=== PATIENT | male | born 1945 | race Caucasian/White ===

== ENCOUNTER 2016-12-09 08:56 | Day surgery (SDC) | payer MEDICARE ==
--- NOTE | 2016-12-08 16:13 | PCM.HPANE ---
Patient Data Surgeon Admitting Provider: Attending Provider:Yifan Love MD Primary Care Physician:Sunita Other Provider:Sheela Garcia Anesthesia Reason for Visit Left Flank Mass Ht/WT & BMI Height (Feet): 5 Height (Inches): 11 Weight (Kilograms): 112.94 Body Mass Index 34.00 Allergies Coded Allergies: Penicillins (Verified Allergy, Unknown, skin sloughing off fingertips, 12/01) Past Anesthesia History Anesthesia History: Denies:: Abnormal Airway, Anesthesia Reactions, Difficult Intubation, Fam Anesthesia Reaction Diabetes History Hx Diabetes?: No MRSA MRSA: No Medications Blood Thinner: Aspirin Hypertension Medication: No Home Meds Incl Beta Garrett: No Reported Medications Triamcinolone Acet (Triamcinolone Acetonide Cream)1 Applic/0.25 Gm Cr1 Applic EXT BID #60 GM Ref 0 12/01/16 Tamsulosin ER 0.4 Mg Cap.er.24h0.4 Mg PO DAILY Ref 0 12/01/16 Ketoconazole 120 Ml [id number] Ml TP DAILY 12/01/16 Desonide (Desonide Cream)15 Gm Cream..g.1 Applic TOP BID #1 TUBE Ref 0 12/01/16 Clobetasol/Skin Cleanser #28 ([place] 0.05% Kit)1 Each Kt.shm.cln1 Each TP DAILY 12/01/16 Aspirin 81 Mg [id number] Mg PO 3xweekly Ref 0 12/01/16 History History of ENT Problems?: No HEENT History: Denies:: Abnormal Airway Cataracts (cataracts forming- no surgery yet ) Difficult Intubation Dysphagia Glaucoma Hearing Problem Sinus Problem TMJ Denture Type: None Teeth Condition: Within Normal Limits Hx of Heart Problems?: No Cardiovascular History: Denies:: AICD Abdominal Aortic Aneurism Cardiac Surgery Chest Pain Congestive Heart Failure Heart Murmur Hypertension Irregular Heartbeat Pacemaker Peripheral Vascular Hx of Respiratory Problem?: No Respiratory History: Denies:: Asthma COPD Emphysema Oxygen Administration Pneumonia Tuberculosis Use of C-PAP Machine (sleep study- marginal results no cpap recommended) Use of Inhalers / NEBS Hx Neurologic Problems?: No Neurological History: Denies:: CVA Headaches Multiple Sclerosis Parkinson's Disease Seizures TIA Hx of GI Problems?: Yes Hx of Problems?: No Genitourinary History: Denies:: Kidney Stones Urinary Tract Infection Male Hx: Positive for:: Prostate Problems (BPH) Denies:: Scrotal Mass Skin History: Positive for:: History Skin Disorders? (left lower flank mass current admission problem ) Hx Musculoskeletal Problems?: Yes Musculoskeletal History: Positive for:: Osteoarthritis Systemic Lupus Denies:: Fibromyalgia Joint Replacement Musculoskeletal Trauma Myasthenia Gravis Hx of Psycho/Social Problems?: No Psycho Social History: Denies:: Anxiety Hx Depression Hx Surgeries?: Yes (trigger finger ) Hx Any Other Health Problems?: Yes Other History: Denies:: Cancer Thyroid Disease History Blood Transfusions: Positive for:: Accept Blood Products? Denies:: Blood Transfusions Hx Diabetes: No Hx Alcohol Use: YesAlcoholic Drinks Per Day: one drink dailyHx Substance Use: NoHave You Smoked inLast 12 mo: No Stop/Bang P-Blood Pressure: treated: No B- Body Mass Index > 35 kg/m2: No A- Age over 50: Yes N- Neck Large Circumference: No G- Gender Male: Yes Risk Assessment Category Category 1A: Patient has history of documented sleep apnea, and HAS NOT received any narcotic, sedative or anesthesia administration during this stay. Category 1B: Patient has history of documented sleep apnea, and HAS received any narcotic , sedative or anesthesia administration during this stay Category 2: Patient has SUSPECTED Obstructive Sleep Apnea, and HAS received any narcotic , sedative or anesthesia administration during this stay. Category 3: Patient has SUSPECTED Obstructive Sleep Apnea and HAS NOT received narcotic, sedative or anesthesia administration during this stay. Category 4: Outpatient in Procedural Areas with known sleep apnea or who screen positive for High Risk via the STOP/BANG questionnaire. Exam Exam General Appearance: Alert, Oriented X3, Cooperative, No Acute Distress HEENT/AIRWAY: MP 2, Neck Movement (from), Mouth Opening (moderate) Lungs: Clear to Auscultation Heart: Exam Unremarkable Plan Impression Patient chart reviewed, patient interviewed and anesthestic plan with risks, benefits, and alternatives discussed, and informed consent obtained. ASA Physical Status: ASA2 Mod Systemic Disease Anesthetic Plan: GA Bene/Risks/Altern/Consents: Yes HP Complete Prior to Induction: Yes Dylan Tai MD Dec 08, 2016 16:13
[~2016-12-09] VITALS: Ht 180.3 cm; Wt 111.0 kg
[2016-12-09] VITALS (9 sets, daily range): BP systolic 125–157; BP diastolic 49–90; PULSE 76–98; RESP 12–18; O2SAT 92–97
[~2016-12-09 08:56] MED LIST: ASPI-973 PO; CLOB1KT.5 TP; Clindamycin Inj 900 MG in IV Premix 1 EACH IV ONE; DESO15CR25 TOP; KEN25CR EXT; KETO120S3 TP; Lactated Ringer's 1,000 ML IV SCH; TAMS0.4C29 PO
[2016-12-09] MEDS ORDERED: fentaNYL-PF 50 mCg/mL 2 mL Inj ONE (08:57)
[2016-12-09] MEDS ORDERED: Ondansetron 2 mg/mL 2 mL Inj ONE (08:57)
[2016-12-09] MEDS ORDERED: EPHEDrine/NS 5 mg/mL 5 mL Syringe ONE (08:57)
[2016-12-09] MEDS ORDERED: Propofol 10,000 mCg/mL 20 mL Inj ONE (08:57)
[2016-12-09] MEDS ORDERED: Phenylephrine/NS 100 mCg/mL 10 mL Syringe IVPUSH ONE (08:57)
[2016-12-09] MEDS ORDERED: Lactated Ringer's 1,000 ML IV ONE (09:16)
[2016-12-09] MEDS ORDERED: Lactated Ringer's 500 ML IV PRN (10:16)
[2016-12-09] MEDS ORDERED: Lactated Ringer's 1,000 ML IV SCH (10:16)
[2016-12-09] MEDS ORDERED: Atropine 0.4 mg/mL Inj IVPUSH PRN (10:20)
[2016-12-09] MEDS ORDERED: Ondansetron 2 mg/mL 2 mL Inj IVPUSH PRN (10:20)
[2016-12-09] MEDS ORDERED: Dexamethasone 4 mg/mL Inj IVPUSH PRN (10:20)
[2016-12-09] MEDS ORDERED: EPHEDrine Sulfate 50 mg/mL Inj IVPUSH PRN (10:20)
[2016-12-09] MEDS ORDERED: hydrALAZINE 20 mg/mL Inj IVPUSH PRN (10:20)
[2016-12-09] MEDS ORDERED: Labetalol 5 mg/mL 4 mL Inj IV PRN (10:20)
[2016-12-09] MEDS ORDERED: HYDROmorphone 1 mg/mL Inj IVPUSH PRN (10:20)
[2016-12-09] MEDS ORDERED: Phenylephrine 10,000 mCg/mL Inj IVPUSH PRN (10:20)
[2016-12-09] MEDS ORDERED: fentaNYL-PF 50 mCg/mL 2 mL Inj IVPUSH PRN (10:20)
[2016-12-09] MEDS ORDERED: Bupivacaine-MPF 0.5% W/EPI 30 mL Inj INFILTRATE ONE (10:53)
[2016-12-09] MEDS ORDERED: HYDROcodone-APAP 5-325 mg Tablet PO PRN (11:55)
--- NOTE | 2016-12-09 12:35 | PCM.ANEP1 ---
Post Anesthesia PACU Phase 1 Assessment Vital Signs Vital Signs Date Time Temp Pulse Resp B/P Pulse Ox O2 Delivery O2 Flow Rate FiO2 12/09/16 12:10 36.7 85 16 125/68 95 Room Air 12/09/16 11:55 88 15 128/66 94 Room Air 12/09/16 11:50 36.6 90 14 137/67 94 Room Air 12/09/16 11:45 89 12 126/49 95 Room Air 12/09/16 11:40 91 12 129/57 94 Room Air 12/09/16 11:35 95 13 125/60 93 Room Air 12/09/16 11:30 98 17 131/55 92 Room Air 12/09/16 11:27 36.6 98 17 135/52 92 Room Air 12/09/16 09:19 36.5 76 18 157/90 97 Room Air Anesthetic Administered: GA Level of Alertness: Awake, talking PACHECO's with Equal Strength: Yes Pain: No Nausea or Vomiting: No CV Function & Hydration Stable: Yes Airway Device: Oxygen Delivery: Room Air Lungs: Normal Air Movement PACU Phase 2 Assessment Complications: No Follow up Care: No Patient Instructions Provided: N/A Dylan Tai MD Dec 09, 2016 12:35
--- NOTE | 2016-12-10 09:51 | OP ---
[address] [address] OPERATIVE REPORT PATIENT: ÁLVARO MARTELL : 1945 MR#: [id number] ADMIT: 12/09/2016 JOB ID: [id number] DATE OF SURGERY: 12/09/2016 PREOPERATIVE DIAGNOSIS(ES): Left flank mass. POSTOPERATIVE DIAGNOSIS(ES): Large left flank epidermal inclusion cyst. PROCEDURE: 1. Excision of large left flank epidermal inclusion cyst 8 cm x 4.5 cm subcutaneous. 2. Layered closure of left flank defect, total length of layered closure 8 cm. SURGEON: Yifan Love MD. SHRIMP PICKER: Jovany Price PA-C who was present for necessary retraction, exposure, and closure. ANESTHESIA: General anesthesia. COMPLICATIONS: None apparent. DRAINS: None. SPECIMEN: Left flank mass to Pathology. INDICATIONS FOR PROCEDURE: This is a 70-year-old male patient with a slowly enlarging left flank mass that has been present for years. The mass is becoming quite large and is interfering with his daily activities. At this point, excision is indicated for tissue diagnosis and for symptom relief. PROCEDURES AND FINDINGS: The patient was identified in the preoperative area and surgical site was marked. The border of the mass was marked. The patient was then taken back to the operating room and placed supine on the operating table. General anesthesia was induced smoothly. The patient was then placed into a modified right decubitus position. The patient was then prepped and draped in the usual sterile manner. Local anesthesia was then infiltrated to the surgical site consisting of 0.25% Marcaine with epinephrine. It was noted that patient has a almost transversely oriented ovoid mass. It is quite closely associated with the skin. There is no obvious punctum. The ellipse was then designed directly over the mass extending from one end of the mass to the other. Incision was then made with a #15 blade. I then deepened the incision slowly through the skin where I encountered what appears to be a very large epidermal inclusion cyst. The cyst was then bluntly and sharply dissected from the surrounding soft tissue with electrocautery as well as a pair of Metzenbaum scissors. The base of the mass was closely associated with the deep fascia. The mass was able to be dissected free and delivered through the incision without any difficulty. The was passed off to Pathology. The area was then irrigated with a small amount of saline. The deep soft tissue was then reapproximated using several 3-0 Monocryl otlixf-ky-ephuy sutures. A layer of 3-0 Monocryl deep dermal sutures were then placed, followed by 4-0 Monocryl running subcuticular suture. The total length of layered closure was 8 cm. The mass measured 8 cm by 4.5 cm in width and approximately 4 cm in thickness. The patient tolerated the procedure well. Needle count, sponge count, and instrument count were correct at the end of the procedure. The patient was extubated and transported to recovery in a stable condition.
--- NOTE | 2016-12-11 15:22 | PATH ---
SURGICAL PATHOLOGY Attending Physician:Yifan Love CASE STATUS: Signed Out PATIENT NAME: ÁLVARO MARTELL PID: [id number] : 1945 DATE COLLECTED:12/09/2016 21:01 SPECIMEN: Skin, Cyst CLINICAL HISTORY: LEFT FLANK MASS 1). LEFT FLANK MASS FINAL DIAGNOSIS: 1.LEFT FLANK, MASS, EXCISION: RUPTURED EPIDERMOID INCLUSION CYST. ICD10 L72.0 GROSS DESCRIPTION: The specimen is received in formalin, labeled with the patient's name, sublabeled as left length mass, and consists of a cyst (6.8 x 3.6 x 2.4 cm) partially covered by an ellipse of skin (6.5 x 2.0 cm). The cyst contains pale yellow solid waxy material. The lining is smooth and flat with no excrescences identified. The wall is less than 0.1 cm thick. The overlying skin is pringle-white and contains a linear superficial split from tip to tip. The splint does not perforate through to the cyst. Ink code: blue-resection margin. Section code: (A-D) cyst with skin, serially sectioned, direct customer service representative. 12/10/16 MICRO DESCRIPTION: See diagnosis. ICD-9 CODES: CPT CODES: 1: 67608 Electronically Signed Out Anastasia Lacey MD [facility] [address], [place] [address] Technical component performed at [facility], [address] [place] [address] Ave[address], [place], [address]
== END 2016-12-09 23:59 | disposition home or self-care (01) ==
LOC: SAS 08:56
PROVIDERS: ATTEND Plastic Surgery
DX: L72.0 Epidermal cyst (principal); R19.04 Left lower quadrant abdominal swelling, mass and lump; N40.1 Benign prostatic hyperplasia with lower urinary tract symptoms; N13.8 Other obstructive and reflux uropathy; M19.90 Unspecified osteoarthritis, unspecified site; F41.9 Anxiety disorder, unspecified; M32.9 Systemic lupus erythematosus, unspecified; Z79.82 Long term (current) use of aspirin
CPT/HCPCS: 11406; 12034; J2250; J2370; J2405; J2704; J3010; J3490; J7120